=== PATIENT | male | born 1940 | race Caucasian/White ===

== ENCOUNTER → 2017-03-11 | Outpatient (CLI) | payer OTHER, BC ==
[~2017-03-11] VITALS: Ht 170.2 cm; Wt 75.1 kg
[~2017-03-11] MED LIST: ANTIVERT25 MG PO; COZAAR PO; FINASTERIDE5 MG PO; LIPITOR PO; LOPID600 MG PO; LORTAB 5 MG/5001 TA1 PO; PROBENECID-COL1 EACH PO; TIMOLOL MA0.5 %/5 M2; TRAVATAN Z2.5 ML OPHTHALMIC; VALIUM; VALIUM2 MG PO; XALATAN2.5 ML IO
--- NOTE | ~2017-03-11 | HPC ---
[facility] [place] [address] PAIN MANAGEMENT CONSULTATION Name: HAИВАНBLOSSOM A Room #: REG PRUDENCE Stahl#: [id number] Admission: 03/11/17 Attend Phys: Everette London DO Discharge: Date of : 40 Report #: [id number] THIS REPORT FOR: //name// CC: Alejo London HISTORY OF PRESENT ILLNESS: The patient is a pleasant 76-year-old gentleman, prior seen by Dr. Sanju Ruiz about a year ago February 2016, diagnosed with symptomatic lumbar radiculopathy secondary to spinal stenosis given a single epidural injection L5-S1 with significant improvement of baseline pain. The patient notes he had 70% relief with that injection for quite some time. He noted that prior to the injection, he was able to walk about quarter of a mile before neurogenic claudication significantly interfere with function. He noted after the injection, he was able to go fishing and walk for hours. MRI from 2013, does note some right neural foraminal narrowing. The patient's primary pain is in the right low back, posterior thigh down to the foot. PHYSICAL EXAMINATION: Shows pleasant 76-year-old gentleman, BMI is 25.9 kilograms per meter squared. Vital signs show modest hypertension 104/91, pulse of 60, respirations 16. Rises from chair using armrest. Gait is tandem. Lower extremity strength is generally preserved. Lumbar flexion is limited. Positive straight leg raise on the right. ASSESSMENT: Symptomatic lumbar radiculopathy secondary to spinal stenosis. RECOMMENDATIONS: Lumbar epidural injection under fluoroscopy today. Continue physical therapy and activity. Follow up simply as needed basis. PROCEDURE: Lumbar epidural injection under fluoroscopy L5-S1. PROCEDURE NOTE: After both written and informed consent to include risk of spinal cord damage, increased pain, weakness and dural puncture, the patient was taken to the fluoroscopy suite, placed in the prone position. After sterile prep and drape, a skin wheal with lidocaine was raised. A 22-gauge epidural Tuohy needle was inserted in the midline at L5-S1 with good loss to resistance. Negative aspiration for cerebrospinal fluid or blood was noted. Then 1 mL of Omnipaque under biplanar fluoroscopy showed good spread within the epidural space. This was followed with 80 mg of triamcinolone plus 1 mL of 1.5% preservative-free Xylocaine, 0.5 mL Xylocaine was then injected to flush the needle; it was removed. The patient was monitored for an appropriate period of time and discharged in good and stable condition. <ELECTRONICALLY SIGNED> By: Everette London DO 03/16/17 0758 [id number] 2223 Everette London DO /nt
[2017-03-11 13:38] VITALS: BP 144/91
== END ==
LOC: PAIN 07:09
DX: M54.16 Radiculopathy, lumbar region (principal); M48.06 Spinal stenosis, lumbar region

== ENCOUNTER → 2017-08-01 | Outpatient (CLI) | payer OTHER, BC ==
[~2017-08-01] VITALS: Ht 170.2 cm; Wt 74.1 kg
--- NOTE | ~2017-08-01 | HPC ---
[facility] [place] [address] PAIN MANAGEMENT CONSULTATION Name: DILCIABLOSSOM A Room #: REG PRUDENCE Stahl#: [id number] Admission: 08/01/17 Attend Phys: Everette London DO Discharge: Date of : 40 Report #: [id number] THIS REPORT FOR: //name// CC: lAejo London DATE OF SERVICE: 08/01/2017 DATE OF SERVICE: 08/01/2017 HISTORY OF PRESENT ILLNESS: The patient is a very pleasant 76-year-old gentleman typically treated for symptomatic lumbar radiculopathy secondary to spinal stenosis. Had a lumbar epidural injection in February before a fishing trip, noted excellent improvement of pain greater than 80% for several months. The pain is gradually beginning to recur and he, in fact, is getting ready to go on another fishing trip. Notes the pain is in the right leg, posterior lateral aspect. PHYSICAL EXAMINATION: Vital signs stable. Rises from chair using armrest. Nominally antalgic gait, but does have objective decreased strength to hip flexion, lower extremity extension and positive straight leg raise on the right. ASSESSMENT: Symptomatic lumbar radiculopathy secondary to spinal stenosis with a greater than 60% relief for greater than 6 weeks following epidural injection. RECOMMENDATION: Repeat epidural injection under fluoroscopy today. PROCEDURE: Lumbar epidural steroid injection under fluoroscopy. PROCEDURE NOTE: After both written and informed consent to include risk of spinal cord damage, increased pain, weakness and dural puncture, the patient was taken to the fluoroscopy suite, placed in the prone position. After sterile prep and drape, a skin wheal with lidocaine was raised. A 22-gauge epidural Tuohy needle was inserted in the midline at L4-L5 with good loss to resistance. Negative aspiration for cerebrospinal fluid or blood was noted. Then 1 mL of Omnipaque under biplanar fluoroscopy showed good spread within the epidural space. This was followed with 80 mg of triamcinolone plus 1 mL of 1.5% preservative-free Xylocaine, 0.5 mL Xylocaine was then injected to flush the needle; it was removed. The patient was monitored for an appropriate period of time and discharged in good and stable condition. <ELECTRONICALLY SIGNED> By: Everette London DO 08/03/17 0752 1305 1623 Everette London DO /nt
[2017-08-01 12:35] VITALS: BP 158/86
== END | disposition home or self-care (01) ==
LOC: PAIN 07:31
DX: M54.16 Radiculopathy, lumbar region (principal)

== ENCOUNTER → 2018-03-16 | Outpatient (CLI) | payer OTHER, BC ==
[~2018-03-16] VITALS: Ht 170.2 cm; Wt 75.3 kg
--- NOTE | ~2018-03-16 | HPC ---
[facility] [place] [address] PAIN MANAGEMENT CONSULTATION Name: BLOSSOM HA Room #: REG PRUDENCE Stahl#: [id number] Admission: 03/16/18 Attend Phys: Everette London DO Discharge: Date of : 40 Report #: [id number] THIS REPORT FOR: //name// CC: Alejo London DATE OF SERVICE: 03/16/2018 The patient is a very pleasant 77-year-old gentleman long treated for symptomatic lumbar radiculopathy secondary to spinal stenosis. The patient does well with occasional epidural injections. He has had an L4-L5 midline epidural injection in July with significant relief, 80% for several weeks, 60% for several months, and then gradual return to baseline. Pain is in the low back, right leg. 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 He has been retired for many years. He enjoys fishing, in fact twice a year he is going fishing and is planning to go fishing up [place] with his nephew next week, hence he presents to Pain Clinic today requesting lumbar epidural injection. Prior injections again 08/01/2017 and 03/11/2017, have all afforded good relief. We reviewed his MRI somewhat dated now from 07/24/2014 noting lumbar spondylosis and multilevel degenerative changes, grade 1 spondylolisthesis at L5 on S1 causing some right neural foraminal narrowing. There is asymmetric neural foraminal narrowing little greater on the left than the right at L3-L4. Again, symptoms are primarily on the contralateral, i.e., right side. PHYSICAL EXAMINATION: Reveals a pleasant 77-year-old gentleman. Vital signs stable as noted in the EMR. Rises from chair using armrest. Gait is generally tandem, though he does have discernible decreased right hip flexion, lower extremity extension and a little bit of plantar flexion strength on the right side compared to left. Straight leg raise is equivocal, modestly positive on the right. Diffuse tenderness across the low back. No discrete trigger points are noted. ASSESSMENT: Symptomatic lumbar radiculopathy secondary to spinal stenosis in a patient who has done well with occasional epidural injections. Initially seen by Dr. Sanju Ruiz 03/10/2016, did a single epidural injection. I did subsequent injections 02/2017 and 07/2017. I told the patient that I am leaving the practice. He said he would be very happy to return to see Dr. Ruiz if and when he needs another injection, likely in 6 months before his next fishing trip. ASSESSMENT: Symptomatic lumbar radiculopathy secondary to spinal stenosis. PROCEDURE: Lumbar epidural [place] [address] PAIN MANAGEMENT CONSULTATION Name: DILCIABLOSSOM A Room #: REG PRUDENCE Stahl#: [id number] Admission: 03/16/18 Attend Phys: Everette London DO Discharge: Date of : 40 Report #: [id number] PROCEDURE NOTE: After both written and informed consent to include risk of spinal cord damage, increased pain, weakness and dural puncture, the patient was taken to the fluoroscopy suite, placed in the prone position. After sterile prep and drape, a skin wheal with lidocaine was raised. A 22-gauge epidural Tuohy needle was inserted in the midline at L4-L5 with good loss to resistance. Negative aspiration for cerebrospinal fluid or blood was noted. Then 1 mL of Omnipaque under biplanar fluoroscopy showed good spread within the epidural space. This was followed with 80 mg of triamcinolone plus 1 mL of 1.5% preservative-free Xylocaine, 0.5 mL Xylocaine was then injected to flush the needle; it was removed. The patient was monitored for an appropriate period of time and discharged in good and stable condition. <ELECTRONICALLY SIGNED> By: Everette London DO 03/17/18 0659 1352 2349 Everette London DO /nt
[2018-03-16 12:56] VITALS: BP 157/91
== END | disposition home or self-care (01) ==
LOC: PAIN 07:20
DX: M48.061 Spinal stenosis, lumbar region without neurogenic claudication (principal); M54.16 Radiculopathy, lumbar region; G89.29 Other chronic pain; Z98.890 Other specified postprocedural states; Z88.8 Allergy status to other drugs, medicaments and biological substances; Z79.899 Other long term (current) drug therapy

== ENCOUNTER → 2019-06-13 | Outpatient (CLI) | payer OTHER, BC | LOC: RAD 14:37 | DX: J98.11 Atelectasis (principal); K44.9 Diaphragmatic hernia without obstruction or gangrene ==

== ENCOUNTER → 2019-08-01 | Outpatient (CLI) | payer OTHER, BC ==
[~2019-08-01] MED LIST changes: +MOBIC15 MG PO
== END ==
LOC: RAD 11:50
DX: K44.9 Diaphragmatic hernia without obstruction or gangrene (principal); N20.0 Calculus of kidney; M47.816 Spondylosis without myelopathy or radiculopathy, lumbar region; M41.86 Other forms of scoliosis, lumbar region

== ENCOUNTER → 2019-08-06 | Outpatient (CLI) | payer OTHER, BC ==
--- NOTE | 2019-08-07 17:06 | PATH ---
[facility] [address] [address] PATHOLOGY RPT PROCEDURE Name: ИВАН HALEONEL Agudelo Room #: REG PRUDENCE Favio#: [id number] Admission: 08/06/19 Date of : 40 Discharge: Report #: [id number] Path Case #: [id number] [facility] Accession Number: [id number] . 01 Material submitted: . PART A: stomach - BX GASTRITIS PART B: esophagus - BX DISTAL ESOPHAGUS. Modifiers: distal . 01 Clinical history: . Hiatal hernia Hiatus hernia, gastritis, questionable Garcia's esophagus A Rule out H. pylori B Rule out Garcia's . 02 Diagnosis: A. Gastric mucosa, gastritis R/O H. pylori, endoscopic biopsy: - Moderate reactive gastropathy associated with focal intestinal metaplasia. - Negative for atrophy or dysplasia. - Negative for Helicobacter pylori (properly controlled immunohistochemical stain performed). . B. Gastroesophageal mucosa, distal esophagus R/O Garcia's, endoscopic biopsy: - Gastric cardia-type mucosa with mild chronic inflammation and reactive changes. - Negative for intestinal metaplasia or dysplasia. - Squamous mucosa with mild esophagitis and features compatible with reflux esophagitis. (IUV:kimberli; 08/07/2019) QMS 08/07/2019 1427 Local . 02 Electronically signed: . Sho Valenzuela MD, Pathologist NPI- [id number] . 01 Gross description: . A. The specimen is received in formalin, labeled "Yayo Ha, gastritis BX" and consists of 3 fragments of pink-velez tissue measuring between 0.3 x 0.3 cm and 0.7 x 0.2 cm which are entirely submitted in A1. . B. The specimen is received in formalin, labeled "Yayo Ha, BX distal esophagus" and consists of multiple fragments of pink-velez tissue measuring 1.1 x 0.9 x 0.3 cm in aggregate which are entirely submitted in B1. (SDY; 08/06/2019) SYU/SYU 08/06/2019 [facility] Local . [address] [address] PATHOLOGY RPT PROCEDURE Name: YAYO HA A Room #: REG PRUDENCE Stahl#: [id number] Admission: 08/06/19 Date of : 40 Discharge: Report #: [id number] Path Case #: [id number] Pathologist provided ICD-10: K31.9, K29.50, K21.9 . 02 CPT . 240181, 804925, E76843 Specimen Comment: A courtesy copy of this report has been sent to Specimen Comment: [phone], . Specimen Comment: Report sent to / DR BARRAGAN Performed at: [address], [place] [id number] MD Royal Portillo MD Phone: [phone] Performed at: [address] [id number] MD Sho Valenzuela MD Phone: [phone]
--- NOTE | 2019-08-07 18:19 | P ---
[facility] [place] [address] PROCEDURE REPORT Name: BLOSSOM HA Room #: REG [facility]#: [id number] Admission: 08/06/19 Attend Phys: Kaiden Hernandez MD Discharge: Date of : 40 Report #: [id number] THIS REPORT FOR: //name// CC: KEVIN JANG DATE OF SERVICE: 08/06/2019 OUTPATIENT UPPER ENDOSCOPY REPORT BRIEF HISTORY: The patient is a 78-year-old male who has complaints of chest pain, chest pressure and reflux symptoms, which have only been partially alleviated by PPI therapy. He has evidence of a hiatus hernia and presents for further evaluation. Repair of hiatus hernia was being considered. PREOPERATIVE DIAGNOSES: Atypical chest pain and reflux symptoms. POSTOPERATIVE DIAGNOSES: 1. Large hiatus hernia. 2. Diffuse gastritis, mild. 3. Questionable islands of Garcia, distal esophagus. MEDICATIONS: Deep sedation with propofol per anesthesia. SPECIMENS: 1. Biopsies of gastritis. 2. Biopsies of questionable Garcia esophagus, distal esophagus. ESTIMATED BLOOD LOSS: 3 mL. PROCEDURE: EGD with biopsy. FINDINGS: Prior to propofol sedation, procedure of upper endoscopy was discussed with the patient as well as potential risks and its complications. He indicates he understands and desires to proceed. DESCRIPTION OF PROCEDURE: With the patient in left lateral decubitus position, Olympus video endoscope was inserted in the cervical esophagus under direct vision without difficulty. Examination of this organ through its entire length revealed normal esophageal mucosa. The distal esophagus was noted to be somewhat tortuous. In the distal esophagus just above the squamocolumnar junction, there appeared to be an island of possible Garcia mucosa, was about 1.5 cm in greatest dimension. It had smooth benign appearance. Biopsies were [facility] [address] [place] [address] PROCEDURE REPORT Name: BLOSSOM HA Room #: REG PRUDENCE Stahl#: [id number] Admission: 08/06/19 Attend Phys: Kaiden Hernandez MD Discharge: Date of : 40 Report #: [id number] obtained. The gastroesophageal junction was identified at about 34 cm from the central incisors. The scope was advanced into a relatively large hiatus hernia. Mucosa in the hernia was intact. There was no evidence of ulcerations. The scope was easily retroflexed in the hiatus hernia and no lesions were seen in the cardia. The diaphragmatic hiatus was identified at about 42 cm. The scope was then advanced into the distal stomach, which was examined on end view as well as retroflexed views. There was a diffuse gastritis with erythema, but no ulcers or erosions. Specifically, there were no Kenneth ulcers or erosions. The pylorus was normal. Duodenal bulb was normal. Postbulbar duodenal sweep was normal down to the fourth portion. At that point, the scope was slowly withdrawn and careful circumferential views confirmed the above finding. The patient tolerated the procedure well. Biopsies obtained of the gastritis. CONDITION OF THE PATIENT UPON DISCHARGE: Following procedure, the patient drowsy and arousable, he will be discharged home when fully ambulatory. INSTRUCTIONS TO THE PATIENT AND FAMILY AT THE TIME OF DISCHARGE: The patient clearly has large hiatus hernia. Interestingly, he was evaluated for iron deficiency anemia several years ago and had a small bowel capsule study. I do not know the source of anemia was clearly identified. I would wonder if his anemia on basis of a large hiatus hernia. However, there is no evidence of significant mucosal disease, which was responsible for blood loss at this point in time. The patient continues to have chest symptoms in spite of his PPI use. I would agree that repair of this large hiatus hernia would be beneficial to the patient. We will follow along with Dr. Diomedes Sims for further evaluation. Also, consider esophageal manometry for further evaluation. <ELECTRONICALLY SIGNED> By: Kaiden Hernandez MD 08/07/19 1819 1051 0007 Kaiden Hernandez MD /nt
== END | disposition home or self-care (01) ==
LOC: GI 08:41
DX: R07.89 Other chest pain (principal); K31.9 Disease of stomach and duodenum, unspecified; K29.50 Unspecified chronic gastritis without bleeding; K21.0 Gastro-esophageal reflux disease with esophagitis; K44.9 Diaphragmatic hernia without obstruction or gangrene; Z88.8 Allergy status to other drugs, medicaments and biological substances; Z79.899 Other long term (current) drug therapy; Z98.890 Other specified postprocedural states
CPT/HCPCS: 62110; 62900

== ENCOUNTER → 2019-08-14 | Outpatient (CLI) | payer OTHER, BC | END | disposition home or self-care (01) | LOC: GI 08:16 | DX: K44.9 Diaphragmatic hernia without obstruction or gangrene (principal); Z98.890 Other specified postprocedural states; Z79.899 Other long term (current) drug therapy; Z88.8 Allergy status to other drugs, medicaments and biological substances ==

== ENCOUNTER → 2020-04-25 | Outpatient (CLI) | payer OTHER, BC | LOC: SJCVC 13:26 | PROVIDERS: ATTEND Internal Medicine Cardiovascular Disease | DX: I45.2 Bifascicular block (principal); R94.31 Abnormal electrocardiogram [ECG] [EKG]; I10 Essential (primary) hypertension; R93.1 Abnormal findings on diagnostic imaging of heart and coronary circulation; R68.89 Other general symptoms and signs; E78.00 Pure hypercholesterolemia, unspecified; M10.9 Gout, unspecified; Z79.899 Other long term (current) drug therapy; Z82.49 Family history of ischemic heart disease and other diseases of the circulatory system ==

== ENCOUNTER → 2021-01-01 | Outpatient (CLI) | payer OTHER, BC | LOC: SJCVC 10:38 | PROVIDERS: ATTEND Internal Medicine Cardiovascular Disease | DX: R94.31 Abnormal electrocardiogram [ECG] [EKG] (principal); I45.10 Unspecified right bundle-branch block; I25.10 Atherosclerotic heart disease of native coronary artery without angina pectoris; E78.00 Pure hypercholesterolemia, unspecified; R93.1 Abnormal findings on diagnostic imaging of heart and coronary circulation; M10.9 Gout, unspecified; I11.0 Hypertensive heart disease with heart failure; I50.9 Heart failure, unspecified; Z98.890 Other specified postprocedural states; Z88.8 Allergy status to other drugs, medicaments and biological substances; Z79.899 Other long term (current) drug therapy; Z86.16 Personal history of COVID-19 ==

== ENCOUNTER → 2021-04-01 | Outpatient (CLI) | payer OTHER, BC | LOC: SJCVCIMAG 08:25 | PROVIDERS: ATTEND Internal Medicine Cardiovascular Disease | DX: I35.1 Nonrheumatic aortic (valve) insufficiency (principal); I49.3 Ventricular premature depolarization; I45.10 Unspecified right bundle-branch block; I10 Essential (primary) hypertension; E78.5 Hyperlipidemia, unspecified; R06.00 Dyspnea, unspecified; R53.83 Other fatigue ==